=== PATIENT | female | born 1995 | race Caucasian/White ===

== ENCOUNTER 2022-07-02 09:16 | Outpatient (CLI) | payer OTHER, SELFPAY ==
--- NOTE | ~2022-07-02 | CT_ITS ---
Non-contrast CT scan of the Abdomen and Pelvis Clinical indication: Left lower quadrant pain Technique: 2.5 mm axial scans were obtained through the abdomen and pelvis without intravenous or or al contrast. Dose reduction technique was used on this scan by utilizing automated exposure control a nd iterative reconstruction technique. The dose-length product (DLP) was 691.56 mGy-cm. Findings: Images through the lung bases reveal no abnormalities. There is no evidence of renal or ureteral calculi. The kidneys and the ureters are nondilated. The liver, spleen, pancreas, gallbladder, and adrenals appear normal. There is no aortic aneurysm. There is no evidence of bowel obstruction. Images through the pelvis were performed. There is no evidence of ascites or lymphadenopathy. Urinary bladder unremarkable. IUD in place. No abnormal adnexal mass evident. Impression: IUD in place, otherwise unremarkable exam. Reviewed, dictated and finalized at [facility]. Impression: IUD in place, otherwise unremarkable exam.
== END 2022-07-02 09:17 ==
LOC: MICIMG 09:17
PROVIDERS: PCP Nurse Practitioner Family; Visit Provider Nurse Practitioner Family
DX: R10.32 Left lower quadrant pain (principal); M54.50 Low back pain, unspecified; Z97.5 Presence of (intrauterine) contraceptive device
CPT/HCPCS: 74176

== ENCOUNTER 2023-06-12 10:17 | Emergency (ER) | payer OTHER, SELFPAY ==
--- NOTE | ~2023-06-12 | XR_ITS ---
EXAMINATION: XR ribs LT 2V INDICATION: Left lower rib pain TECHNIQUE: 3 views of the left ribs were obtained. COMPARISON: None. FINDINGS: Calcified callus surrounds a healing anterolateral fracture of the left fifth rib. No acute rib fracture is identified. The visualized lungs are clear. No pleural effusion or pneumothorax. The cardiomediastinal silhouette is normal. IMPRESSION: 1. No acute cardiopulmonary abnormality or evidence of acute rib fracture. Healing anterolateral lef t fifth rib fracture. Reviewed, dictated and finalized at location [employer] IMPRESSION: 1. No acute cardiopulmonary abnormality or evidence of acute rib fracture. Hea ling anterolateral left fifth rib fracture.
[2023-06-12 10:36] VITALS: BP 142/80; PULSE 96; RESP 18; TEMP 36.6; O2SAT 100
--- NOTE | 2023-06-12 10:55 | ED.GENADULT ---
HPI - General Adult General Chief complaint: Back Pain/Injury Stated complaint: lt side and back pain Time Seen by Provider: 06/12/23 10:24 Source: patient Mode of arrival: ambulatory Limitations: no limitations History of Present Illness HPI narrative: Patient is a 28-year-old female who presents with left rib pain that started 2 days ago. Patient states she felt a pop and has had pain since. Patient reports similar instance around [place] that took over a month to improve. Denies any cough or shortness of breath. States primary care provider told her to come get x-ray to see if there is a displaced rib. Related Data Home Medications Medication Instructions Recorded Confirmed fluoxetine 60 mg tablet 60 mg PO DAILY 12/26/21 06/12/23 quetiapine 50 mg tablet,extended 50 mg PO QHS 12/26/21 06/12/23 release 24 hr (Seroquel XR) Allergies Allergy/AdvReac Type Severity Reaction Status Date / Time No Known Allergies Allergy Verified 06/12/23 10:48 Review of Systems Review of Systems: All systems reviewed & are unremarkable except as noted in HPI and below Constitutional: Constitutional: Denies body ache(s), Denies chills, Denies fatigue, Denies fever(s), Denies headache(s), Denies malaise and Denies weakness Eyes: Eyes: Denies blurry vision, Denies irritation and Denies loss of vision ENT: Denies otalgia, Denies headache(s), Denies nasal discharge, Denies sinus pain and Denies sore throat Cardiovascular: Cardiovascular: Denies chest pain, Denies irregular heart rhythm and Denies dyspnea Respiratory: Respiratory: Denies dyspnea and Reports other (Left-sided pain) Gastrointestinal: Gastrointestinal: Denies abdominal pain, Denies melena, Denies hematochezia, Denies diarrhea, Denies nausea and Denies vomiting Musculoskeletal: Musculoskeletal: Denies back pain, Denies myalgias and Denies arthralgias Integumentary/Breasts: Skin/Breast: Denies pruritus and Denies rash Neurologic: Denies headache(s), Denies loss of vision and Denies weakness Psychiatric: Psychiatric: Reports no additional psychiatric complaints Endocrine: Endocrine: Denies fatigue PMFSH Past Medical History Medical History Acute sinusitis Anxiety BMI 30.0-30.9,adult Bumps on skin Depression Difficulty in micturition Encounter to establish care Fatigue IUD (intrauterine device) in place LLQ pain Low back pain Pain, joint, multiple sites Screening for diabetes mellitus Surgical History Surgical History History of delivery (~2020) Family History Family History Mother Depression Grandparent Depression Hypertension Diabetes mellitus Social History Social History Smoking status: Never smoker Alcohol intake: current Alcohol use details: occa Substance use: never Substance use type: does not use Lack of Transportation: No Lack of Food: Never True Current Housing: I Have Housing Concerned About Future Housing: No Difficulty Paying Gas/Electric Bills: No Difficulty Paying for Meds: No Currently Unemployed: No Education: High School Diploma/GED Difficulty w/ Childcare or Family Care: No Comments At time of signature, agree with nursing past medical, surgical, social and family history. There is no relevant family history pertinent to the presenting complaint. Exam Const: General: cooperative, healthy appearing, comfortable, no acute distress and well nourished Nutritional Appearance: well nourished Orientation/consciousness: patient oriented x3 Limitations: no limitations HENMT: Head: normal to inspection, normocephalic and atraumatic Ears: hearing grossly normal bilaterally and external ears normal Face/Nose/Sinus: Normal external nose present, normal facial exam and fac
== END 2023-06-12 11:42 | disposition home or self-care (01) ==
PROVIDERS: Emergency Provider Nurse Practitioner Family; PCP Nurse Practitioner Family
DX: S22.32XD Fracture of one rib, left side, subsequent encounter for fracture with routine healing (principal); F41.9 Anxiety disorder, unspecified; F32.A Depression, unspecified; X58.XXXD Exposure to other specified factors, subsequent encounter
CPT/HCPCS: 71100; 99213; G0463